=== PATIENT | female | born 1995 | race Caucasian/White ===

== ENCOUNTER 2020-11-22 08:53 | Emergency (ER) | payer MEDICAID ==
[~2020-11-22] VITALS: Ht 144.8 cm; Wt 60.8 kg
[~2020-11-22 08:53] MED LIST: PREN-13 PO; [UNRECOGNIZED DRUG - CODE] VG
[2020-11-22 08:55] VITALS: BP 125/67
--- NOTE | 2020-11-22 09:00 | NUR ---
PATIENT AMBULATED TO BED 11.
--- NOTE | 2020-11-22 09:09 | NUR ---
25 Y/O FEMALE C/O HEADACHE, LOWER ABDOMINAL PAIN 10/10 DESCRIBES [facility]ARP RADIATES TO SUPRAPUBIC REGION , N/V X 3 DAYS. PT STATES SHE DRANK 1 BOTTLE OF [place] X1 DAY AND HAS WORSENED HER PAIN. PT DENIES DYSURIA, DENIES FEVER/CHILLS. PT IS SLURRING SPEECH FROM ALCOHOL, STATES SHE GOT THROWN OVER BOYFRIENDS SHOULDER BECAUSE SHE WANTED ATTENTION. ABDOMEN IS SOFT, ROUND, NON-TENDER, BOWEL SOUNDS X4 ACTIVE. PMH: MARIPOSA GUPTA
--- NOTE | 2020-11-22 09:11 | NUR ---
Dr. Trujillo at pt bedside for further evaluation.
[2020-11-22] MEDS ORDERED: KETOROLAC 30 MG/ML VIAL IM ONE (09:15)
[2020-11-22] MEDS ORDERED: ONDANSETRON 4 MG ODT PO ONE (09:15)
--- NOTE | 2020-11-22 09:20 | NUR ---
electronic equipment maint tech at pt bedside.
[2020-11-22 09:31] LABS: BASOPHILS # (AUTO) 0.1 K/uL (0.00-0.22); BASOPHILS % (AUTO) 0.5 % (0.0-2.0); EOSINOPHILS % (AUTO) 0.2 % (0.0-4.0); HEMATOCRIT 41.7 % (36-48); HEMOGLOBIN 13.9 g/dL (12.0-16.0); LYMPHOCYTES # (AUTO) 1.9 K/uL (2.5-16.5); LYMPHOCYTES % (AUTO) 15.5 % (20.5-51.1); MEAN CORPUSCULAR HEMOGLOBIN 30 pg (27-31); MEAN CORPUSCULAR HGB CONC 33 g/dL (33-37); MEAN CORPUSCULAR VOLUME 88.8 fL (80-94); MONOCYTES # (AUTO) 0.8 K/uL (0.8-1.0); MONOCYTES % (AUTO) 6.2 % (1.7-9.3); NEUTROPHILS # (AUTO) 9.5 K/uL (1.8-7.7); NEUTROPHILS % (AUTO) 77.6 % (42.2-75.2); PLATELET COUNT (AUTO) 202 K/uL (140-450); RED CELL DISTRIBUTION WIDTH 12.7 % (11.6-13.7); WHITE BLOOD COUNT (AUTO) 12.3 K/uL (4.8-10.8)
--- NOTE | 2020-11-22 09:38 | NUR ---
PT TAKEN TO RAD VIA W/C
[2020-11-22 09:40] LABS: APPEARANCE,URINE CLEAR (CLEAR); BILIRUBIN,URINE NEGATIVE (NEGATIVE); BLOOD, URINE TRACE-I (NEGATIVE); COLOR,URINE YELLOW (YELLOW); LEUKOCYTE ESTERASE ,URINE NEGATIVE (NEGATIVE); NITRITE, URINE NEGATIVE (NEGATIVE); PH,URINE 7.5 (5.0-9.0); UGLUCOSE NEGATIVE (NEGATIVE)
[2020-11-22 09:42] LABS: ANION GAP 14.1 (8-16); CHLORIDE 102 mmol/L (98-107); CREATININE 0.8 mg/dL (0.6-1.3); GFR ARICAN-AMERICAN 111 mL/min (>90); GLUCOSE 102 mg/dL (74-106); POTASSIUM 4.1 mmol/L (3.5-5.1); SODIUM SERUM 139 mmol/L (136-145); UREA NITROGEN, BLOOD 15 mg/dL (7-18)
[2020-11-22 09:43] LABS: RBC,URINE 0-5 /HPF (0-5); WBC,URINE 0-5 /HPF (0-5)
[2020-11-22 09:48] LABS: ALBUMIN 4.1 g/dL (3.4-5.0); ASPARTATE AMINOTRANSFERASE 17 U/L (15-37); LIPASE 82 U/L (73-393); TOTAL BILIRUBIN 0.4 mg/dL (0.0-1.0)
--- NOTE | 2020-11-22 09:50 | NUR ---
Pt brought back to ER bed 11 via W/C.
[2020-11-22] MEDS ORDERED: MIRABULK PO (10:13)
[2020-11-22] MEDS ORDERED: ONDA-24 SL (10:13)
[2020-11-22] MEDS ORDERED: IBUP-2213 PO (10:13)
[2020-11-22] MEDS ORDERED: AZITHROMYCIN 250 MG TAB PO ONE (10:25)
[2020-11-22] MEDS ORDERED: cefTRIAXone 1,000 MG in LIDOCAINE MPF 1% 2.1 ML IM ONE (10:25)
[2020-11-22] MEDS ORDERED: cefTRIAXone 1,000 MG VIAL ONE (10:25)
[2020-11-22] MEDS ORDERED: LIDOCAINE MPF 1% 5 ML ONE (10:26)
[2020-11-22 10:35] VITALS: BP 125/67
--- NOTE | 2020-11-22 10:35 | NUR ---
Patient discharged with v/s stable. Written and verbal after care instructions given and explained. Patient alert, oriented and verbalized understanding of instructions. Ambulatory with steady gait. All questions addressed prior to discharge. ID band removed. Patient advised to follow up with PMD. Rx of [id number] po daily, zofran 4mg po q8g, and ibuprofen 600mg po q6h given. Patient educated on indication of medication including possible reaction and side effects. Opportunity to ask questions provided and answered.
== END 2020-11-22 10:35 | disposition home or self-care (01) ==
LOC: MED 08:53
DX: K56.41 Fecal impaction (principal); R11.10 Vomiting, unspecified
CPT/HCPCS: 36415; 74021; 80053; 81001; 81025; 83690; 85025; 96372; 99284; G0482; J0696; J1885; J2001; Q0162